=== PATIENT | female | born 1975 | race Caucasian/White ===

== ENCOUNTER → 2017-10-09 | Outpatient (CLI) | payer OTHER | LOC: FIMAGING 08:06 | PROVIDERS: ATTEND Obstetrics & Gynecology | DX: O09.522 Supervision of elderly multigravida, second trimester (principal); O44.02 Complete placenta previa NOS or without hemorrhage, second trimester; O26.892 Other specified pregnancy related conditions, second trimester; M35.00 Sjogren syndrome, unspecified; Z3A.19 19 weeks gestation of pregnancy; Z88.0 Allergy status to penicillin ==

== ENCOUNTER → 2017-12-11 | Outpatient (CLI) | payer OTHER | LOC: FIMAGING 08:56 | PROVIDERS: ATTEND Obstetrics & Gynecology | DX: O44.03 Complete placenta previa NOS or without hemorrhage, third trimester (principal); O09.523 Supervision of elderly multigravida, third trimester; O26.893 Other specified pregnancy related conditions, third trimester; M32.9 Systemic lupus erythematosus, unspecified; M35.00 Sjogren syndrome, unspecified; Z3A.28 28 weeks gestation of pregnancy ==

== ENCOUNTER → 2018-01-08 | Outpatient (CLI) | payer OTHER | LOC: FIMAGING 13:26 | PROVIDERS: ATTEND Obstetrics & Gynecology | DX: O09.523 Supervision of elderly multigravida, third trimester (principal); O36.63X0 Maternal care for excessive fetal growth, third trimester, not applicable or unspecified; O44.03 Complete placenta previa NOS or without hemorrhage, third trimester; M32.9 Systemic lupus erythematosus, unspecified; M35.00 Sjogren syndrome, unspecified; O26.893 Other specified pregnancy related conditions, third trimester; Z3A.32 32 weeks gestation of pregnancy ==

== ENCOUNTER 2018-01-28 21:27 | Observation (INO) | payer OTHER ==
--- NOTE | 2018-01-28 22:24 | PDGENHP ---
History and Physical - Chief Complaint Painless vaginal bleeding, complete previa - History of Present Illness Rebecca is a 42 yo at 35w0d wks EGA who called today with small but ongoing vaginal bleeding and brown discharge. Really no change in cramping or ctc's - she's been having irregular BHCtx's for weeks now. No leaking, good movement. Bleeding has never really been heavy or bright red. This began this morning, no intercourse or change in physical activity yesterday that would've prompted anything. She does have known complete previa and has a scheduled PLTCS with Dr. Niño on 02/14/18. This is her first episode of bleeding thus far during the . Her labs are not available at the time of this H&P. Laboratory Tests 08/09/17 08/09/17 08/09/17 10:03 10:03 10:03 Hgb Hct Plt Count RPR NONREACTIVE C.trachomatis RNA (TMA) Hep Bs Antigen NEGATIVE HIV 1&2 Antibody NEGATIVE Rubella IgG Antibody 12.70 VZV IgG Antibody Positive VZV IgG,IgM Antibody Negative 08/22/17 12/13/17 Unknown 12:49 Hgb 11.7 L Hct 33.9 L Plt Count 171 RPR C.trachomatis RNA (TMA) NEGATIVE Hep Bs Antigen HIV 1&2 Antibody Rubella IgG Antibody VZV IgG Antibody VZV IgG,IgM Antibody History Information - Allergies/Home Medication List Allergies/Adverse Reactions: hydrocodone [From Vicodin] Allergy (Mild, Verified 01/28/18 22:14) Unknown Penicillins Allergy (Verified 01/28/18 22:14) Home Medications: Vit27&Calcium/Iron/FA [] 1 tab PO DAILY 02/09/16 [Last Taken ] Herbals/Supplements -Info Only 01/28/18 [Last Taken 01/28/18] Iron 01/28/18 [Last Taken 01/28/18] Turmeric/Herbal Complex No.278 01/28/18 [Last Taken 01/28/18] I have personally reviewed and updated: family history, medical history, social history, surgical history - Social History Smoking Status: Never smoked Alcohol Use: None Review of Systems Review of Systems: ROS: 10pt was reviewed & negative except for what was stated in HPI & below Physical Exam Physical Exam: Constitutional: no apparent distress, not in pain Gastrointestinal: soft, non-tender abdomen, No tenderness Skin: warm, normal color Musculoskeletal: full muscle strength Neurologic: AAOx3 Psychiatric: interacting appropriately, not anxious Lab Data & Imaging Review Imaging Review: FHR 140s, mod donovan, accels present, no decels Assessment & Plan Assessment: 42 yo G1 at 35 wks EGA - presents with painless bleeding and known complete placenta previa. - Admitted for observation. No bleeding on admission. - If bleeding returns will need IV, CBC, Type & Screen. - If reassuring tracing for the first 3 hrs then can Dc CEFM and allow her to sleep. - If bleeding or ctx's evolve - then will give BMZ. - Will discuss plan for observation/dc tomorrow. LISA
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
--- NOTE | 2018-01-30 09:20 | OBPROG ---
Labor Progress Note Assessment/Plan: Assessment: IUP at 35w2d complete previa with first episode bld on 01/28 - scant last pm Plan: will d/c home to cont limited activity at home. RTC monday01/30/18 09:13 Subjective/Intrapartum Course: Pt doing well. Did not have any spotting overnight. Had a few more contractions this morning, followed by brown/dark spotting. 01/29/18 11:16 01/30/18 09:14 Pt doing well. Whiteside she really slept well. GFM and no cramping this am. no bld this am. scant spotting - brownish last pm after mild cramps. Reports urinating fine and generally regular BMs. Disc limited activity and hydrating adequately. Disc f/u with office Monday and if any further persistent brownish or red bld. Objective: ultrasound done and DEIRDRE - 4 quad was 20cm, vtx - Contraction Pattern Assessment Current Contraction Pattern: Other (Specify) (none) - FHR Assessment Cowan FHR (bpm): 130 FHR Pattern Variability: Moderate FHR Category: 1 (reactive NSTs with accels) Oxytocin Orders Assessment - Pre-Induction/Augmentation Assessment Gestational Age: 35 week(s) and 0 day(s) ICD10 Worksheet Patient Problems: Problems Problem Status Onset Placenta previa antepartum in third trimester Acute
== END 2018-01-30 12:15 | disposition home or self-care (01) ==
LOC: FLD 21:27
PROVIDERS: ADMIT Obstetrics & Gynecology; ATTEND Obstetrics & Gynecology
DX: O44.13 Complete placenta previa with hemorrhage, third trimester (principal); Z3A.34 34 weeks gestation of pregnancy
CPT/HCPCS: 59025; 76815; G0378

== ENCOUNTER 2018-02-13 08:12 | Inpatient (IN) | payer OTHER ==
[2018-02-13] MEDS ORDERED: LR 1,000 ML IV SCH ×2 (09:30→12:30)
[2018-02-13] MEDS ORDERED: LR 500 ML IV ONE (12:12)
[2018-02-13] MEDS ORDERED: CLINDAMYCIN 900 MG/DEXTROSE 50 ML IV ONE (12:13)
[2018-02-13 12:38] LABS: PLATELET COUNT 148 10^3/uL (150-400)
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
[2018-02-13] MEDS ORDERED: CITRIC ACID/SODIUM CITRATE 30 ML UDCUP ONE (13:52)
[2018-02-13] MEDS ORDERED: OXYTOCIN 100 UNITS/10 ML VIAL ONE (14:01)
[2018-02-13] MEDS ORDERED: fentaNYL 100 MCG/2 ML INJ ONE (14:01)
[2018-02-13] MEDS ORDERED: morphINE PF 5 MG/10 ML INJ ONE (14:01)
[2018-02-13] MEDS ORDERED: PHENYLEPHRINE 10 MG/ML SDV ONE (14:02)
[2018-02-13] MEDS ORDERED: MEPERIDINE 25 MG/0.5 ML AMP IVP PRN (14:03)
[2018-02-13] MEDS ORDERED: PHENYLEPHRINE HCL 100 MCG/ML SYR IVP PRN (14:03)
[2018-02-13] MEDS ORDERED: fentaNYL 100 MCG/2 ML INJ IVP PRN (14:03)
[2018-02-13] MEDS ORDERED: NALOXONE HCL 0.4 MG/ML INJ IVP PRN ×2 (14:03)
[2018-02-13] MEDS ORDERED: ONDANSETRON 4 MG/2 ML VIAL IVP PRN ×2 (14:03)
[2018-02-13] MEDS ORDERED: AMMONIA AROMATIC 1 EACH AMP IH ONE (14:05)
[2018-02-13] MEDS ORDERED: MISOPROSTOL 200 MCG TAB ONE (14:07)
--- NOTE | 2018-02-13 14:08 | PREANESOB ---
Obstetric Pre-Anesthesia Info - General Info Proposed Procedure: C/s : 3 Para: 0 SHAMIKA: 03/04/18 Gestational Age: 37 week(s) and 2 day(s) - Labor Status Indications for Current Section: Placenta Previa Anesthesia Allergies/Adverse Reactions: Allergy/AdvReac Type Severity Reaction Status Date / Time hydrocodone [From Vicodin] Allergy Mild Unknown Verified 01/28/18 22:14 Penicillins Allergy Verified 01/28/18 22:14 Home Medications: Medication Instructions Recorded Vit27&Calcium/Iron/FA 1 tab PO DAILY 02/09/16 [] Herbals/Supplements -Info Only 01/28/18 Iron 01/28/18 Turmeric/Herbal Complex No.278 01/28/18 Visit Medications: Generic Name Dose Route Start Last Admin Trade Name Freq PRN Reason Stop Dose Admin Lactated Ringer's 1,000 mls @ 0 mls/hr 02/13/18 09:30 02/13/18 09:35 Lr IV 08/12/18 09:29 1,000 mls CONT JORDIN Administration As Directed Lactated Ringer's 1,000 mls @ 125 mls/hr 02/13/18 12:30 Lr IV 02/14/18 12:29 CONT JORDIN Discontinued Medications Generic Name Dose Route Start Last Admin Trade Name Freq PRN Reason Stop Dose Admin Ammonia (Aromatic Spirit) Confirm 02/13/18 14:05 Ammonia Aromatic Administered 02/13/18 14:06 Dose 1 each IH .STK-MED ONE Citric Acid/Sodium Citrate Confirm 02/13/18 13:52 Bicitra Administered 02/13/18 13:53 Dose 30 ml .ROUTE .STK-MED ONE Fentanyl Confirm 02/13/18 14:01 Sublimaze Administered 02/13/18 14:02 Dose 100 mcg .ROUTE .STK-MED ONE Clindamycin Phosphate/Dextrose 50 mls @ 100 mls/hr 02/13/18 12:13 02/13/18 13 :58 Cleocin 900 Mg (Premix) IV 02/13/18 12:42 50 mls ONCALL ONE Administration Protocol Lactated Ringer's 500 mls @ 0 mls/hr 02/13/18 12:12 Lr IV 02/13/18 12:13 ONCE ONE As Directed Morphine Sulfate Confirm 02/13/18 14:01 Morphine Pf 5 Mg/10 Ml Administered 02/13/18 14:02 Dose 5 mg .ROUTE .STK-MED ONE Oxytocin Confirm 02/13/18 14:01 Pitocin Administered 02/13/18 14:02 Dose 100 units .ROUTE .STK-MED ONE Phenylephrine HCl Confirm 02/13/18 14:02 Neosynephrine Administered 02/13/18 14:03 Dose 10 mg .ROUTE .STK-MED ONE - Anesthesia History Response to Local Anesthetics: Normal Anesthesia & Operative History: No Prior Problems Family Anesthesia History: Negative - Vital Signs Latest Vital Signs (Nursing): Temp Pulse Resp BP Pulse Ox 37.0 C 60 20 106/77 02/13/18 12:41 02/13/18 12:41 02/13/18 12:41 02/13/18 12:41 Height/Weight (Nursing): Height 170.18 cm Weight 77.111 kg - Focused Exam Neck exam: FROM Mallampati Score: Class 3 Pulmonary: no respiratory distress, no rales or rhonchi, clear to auscultation Cardiovascular: regular rate and rhythym, no murmur, rub, or gallop Labs: 02/13/18 09:30 Patient ABO/Rh AB POSITIVE 02/13/18 09:30
[2018-02-13] MEDS ORDERED: MAGNESIUM HYDROXIDE 30 ML UDCUP PO PRN (15:42)
[2018-02-13] MEDS ORDERED: LACTULOSE 20 GM/30 ML UDCUP PO PRN (15:42)
[2018-02-13] MEDS ORDERED: POLYETHYLENE GLYCOL 3350 17 GM PKT PO PRN (15:42)
[2018-02-13] MEDS ORDERED: SIMETHICONE 80 MG TAB CHEW PO PRN (15:42)
[2018-02-13] MEDS ORDERED: BISACODYL 10 MG SUPP PR PRN (15:42)
--- NOTE | 2018-02-13 15:44 | POSTANESTH ---
Post Anesthetic Evaluation Cardiovascular Status: Normal, Stable, Similar to Pre-Op Cond Respiratory Status: Normal, Stable, Similar to Pre-op Cond. Level of Consciousness/Mental Status: Can Participate in Eval, Alert and Oriented Pain Control: Adequate, Prn Tx Ordered Nausea/Vomiting Control: Adequate, Prn Tx Ordered Complications Possibly Related to Anesthesia: None Noted
--- NOTE | 2018-02-13 15:49 | OBDEL ---
Info Type: Primary Presentation at Delivery: Vertex ([facility]) L&D Analgesia/Anesthesia Type: General GBS+: No Intrapartum Medications: Generic Name Dose Route Start Last Admin Trade Name Freq PRN Reason Stop Dose Admin Lactated Ringer's 1,000 mls @ 0 mls/hr 02/13/18 09:30 02/13/18 09:35 Lr IV 08/12/18 09:29 1,000 mls CONT JORDIN Administration As Directed Discontinued Medications Generic Name Dose Route Start Last Admin Trade Name Freq PRN Reason Stop Dose Admin Clindamycin Phosphate/Dextrose 50 mls @ 100 mls/hr 02/13/18 12:13 02/13/18 13 :58 Cleocin 900 Mg (Premix) IV 02/13/18 12:42 50 mls ONCALL ONE Administration Protocol - Infant Care Provider Senior Financial Reporting Analyst/HAT CLEANER: Demi Wilson - Hospital Course Intrapartum: 02/13/18 15:47 Known placenta previa at 37 2/7 weeks with bleeding Indications for Delivery: Placenta Previa Vaginal Delivery - Labor and Delivery Cord Gases: Cord Gases Cord Blood PCO2 46.6 mmHg (37-60) 02/13/18 14:44 Cord Base Excess TNP 02/13/18 14:44 Cord ABG pH 7.34 (7.10-7.37) 02/13/18 14:44 Cord VBG pH TNP 02/13/18 14:44 Operative Report - Delivery Pre-op Diagnoses: IUP @ 37 2/7 wks with known complete placenta previa with bleeding Post-op Diagnoses: IUP @ 37 2/7 wks with known complete placenta previa with bleeding History of Prior Section: No Number of Prior Sections: 0 Nulliparous Prior to Delivery: No Indications for Current Section: Placenta Previa Procedure: Unscheduled, Low Transverse Surgeon: Olga Niño Precision Inspector: Kirstin Cuevas Anesthesiologist: Damian Christopher Complications: Post Hemorrhage (Secondary to uterine atony-Pitocin given , 30 units in each bag of fluids x2 as well as 800 mcg Cytotec ID given. Uterine massage performed. Multiple [id number]-[id number] sutures on hysterotomy done and finally hemostasis was achieved. Loan placed for further hemostasis. At the end of the case, a large clot was expressed after fundal massage-an additional 250 cc.) Findings: A viable male infant born at 1444 in [place] presentation with 9 and 9 Apgars. Some difficulty delivering the head secondary to placenta near incision, but head was finally delivered with vacuum assistance. Cord clamped x 2 and then cut, to waiting HAT CLEANER. Cord gases obtained. Minimal blood obtained for cord bloods. Placenta delivered spontaneously intact with 3-vc. Grossly normal appearing uterus, tubes and ovaries. PPH noted secondary to uterine atony. Pitocin-30 units in each bag of fluids given x 2 as well as Cytotec 800 mcg ID. Uterine massage was performed and multiple zbhkow-[id number]-uzifm sutures were placed and hemostasis was finally achieved. Loan was placed on hysterotomy for further hemostasis. Pt tolerated well. Specimen(s)/Path: Other (Specify) (none) IV Fluid (ml): 2,400 EBL: 1500 cc UO: 50 cc clear urine Cord Gases: Cord Gases Cord Blood PCO2 46.6 mmHg (37-60) 02/13/18 14:44 Cord Base Excess TNP 02/13/18 14:44 Cord ABG pH 7.34 (7.10-7.37) 02/13/18 14:44 Cord VBG pH TNP 02/13/18 14:44 Data SHAMIKA: 03/04/18 Gestational Age: 37 week(s) and 2 day(s) [place] Delivery Date: 02/13/18 Delivery Time: 14:44 Sex of Infant: Male Score (1 Min): 9 Score (5 Min): 9 ICD10 Worksheet Patient Problems: Problems Problem Status Onset PPH ( hemorrhage) Acute Status post primary low transverse section Acute Placenta previa antepartum in third trimester Acute - ICD10 Problem Qualifiers (1) Status post primary low transverse section (2) PPH ( hemorrhage)
[2018-02-13] MEDS ORDERED: MEASLES,MUMPS&RUBELLA VACC/PF 0.5 ML VIAL SC ONE (17:42)
[2018-02-13] MEDS: KETOROLAC 30 MG/1 ML SDV IVP SCH (18:02)
--- NOTE | 2018-02-13 23:49 | GOP ---
DATE OF OPERATION: 02/13/2018 SURGEON: Ogla Niño DO CRUSHER SCREEN REPAIRER: JAMEY Moffett. ANESTHESIA: Spinal. ANESTHESIOLOGIST: Damian Christopher MD. PREOPERATIVE DIAGNOSIS: 1. Intrauterine at 37 and 2/7 weeks. 2. Known complete placenta previa. 3. Vaginal bleeding. POSTOPERATIVE DIAGNOSIS: 1. Intrauterine at 37 and 2/7 weeks. 2. Known complete placenta previa. 3. Vaginal bleeding. PROCEDURE PERFORMED: Primary low transverse section. FINDINGS: Viable male born at 1444 in [place] presentation with 9 and 9 Apgars. Some difficulty delivering the head secondary to placenta at incision. Head was finally delivered with vacuum assistance. Cord clamped x2 and cut and to awaiting OPERATING ROOM SPECIALIST. Cord gases obtained. There was minimal blood obtained for cord bloods. Placenta then delivered spontaneously intact with 3- vessel cord. Grossly normal-appearing uterus, tubes, and ovaries. hemorrhage noted secondary to uterine atony. Pitocin x2 bags given as well as Cytotec 800 mcg given p.r. Uterine massage was performed and multiple figure-of -eight sutures was placed. Hemostasis was finally achieved. ESTIMATED BLOOD LOSS: 1500 cc. INDICATIONS: Patient is a 42-year-old 3, para 0-0-2-0, at 37-2/7 weeks ' with a known complete placenta previa who comes in today with vaginal bleeding this morning and some mild cramping. Patient was scheduled for a primary in the morning. We discussed proceeding to the operating room for primary now while patient is stable. Patient agrees with the plan. We discussed risks, benefits, and alternatives of the procedure including, but not limited to, bleeding, infection, and damage to surrounding organs. Patient understands all risks of the procedure, and wants to proceed. Patient was properly consented. DESCRIPTION OF PROCEDURE: Patient was taken to the operating room, where spinal anesthesia was administered without difficulty. Patient was prepped and draped in usual sterile fashion in dorsal supine position with leftward tilt. A Pfannenstiel skin incision was then made with a scalpel, carried through the underlying layer of fascia using the Bovie. The fascia was incised in the midline and extended laterally using Lara scissors. Gerson clamps were then used to elevate the superior aspect of fascial incision which was elevated, and underlying rectus muscles were dissected off sharply using the Lara scissors. Attention was then turned to the inferior aspect of the fascial incision which in a similar fashion was grasped with Gerson clamps, elevated, and underlying rectus muscles dissected off again using the Lara scissors. Rectus muscles were then dissected in the midline. Peritoneum was identified and entered bluntly. This incision was extended superiorly and inferiorly with good visualization of the bladder. Bladder blade was then inserted. Vesicouterine peritoneum was identified, entered sharply using Metzenbaum scissors. Incision was then extended laterally, and the bladder flap was created digitally. Bladder blade was reinserted. The lower uterine segment was identified and then incised in transverse fashion using scalpel and extended superiorly and inferiorly with manual traction. Lots of clear fluid was noted upon entry to amniotic sac. There was also placenta noted right at the incision. After the placenta was moved out of the way, the head was noted and grasped. There was difficulty delivering the head, so a Kiwi vacuum was applied and the head was then delivered. The nose and mouth were bulb suctioned. The cord was clamped immediately x2 and cut. was handed to the awaiting nurse practitioner. Placenta was delivered spontaneously intact with a 3-vessel cord. Cord gases were obtained prior to this. There was minimal blood for cord bloods. Uterus was then exteriorized, and cleared of all clots and debris. Uterine incision repaired in two layers using 0 Vicryl suture. The 1st layer was a running locked suture of 0 Vicryl. Hemostasis was noted. A 2nd layer was an imbricating layer using 0 Vicryl suture. There was noted to be bleeding from multiple areas and uterine atony was noted. At this time Pitocin was running, 30 units in 1 bag and it was recommended giving a 2nd bag at this time. Also, 800 mcg of Cytotec was placed per rectum by the nurse. These bleeding sites were sutured with [id number] stitches of 0 Vicryl. Uterine massage was performed, and hemostasis was finally achieved. The uterus was then returned to the abdomen. Gutters were then cleared of all clots and debris. Incision was reexamined, and was noted to be slightly oozing, so at this point Loan was placed and hemostasis was achieved. The rectus muscles were reapproximated in the midline using 3-0 Vicryl. Fascia was then closed with 0 Vicryl suture. Hemostasis noted. The skin was then closed with 0 Vicryl with a Saud needle, and Steri-Strips were applied. Sponge, lap, instrument, and needle counts were correct x2. Patient tolerated the procedure well. Patient was stable at the completion of the procedure and was transferred to recovery room in stable condition. INTRAVENOUS FLUIDS: 2400 cc of LR. URINE OUTPUT: 50 cc of clear urine at the end of the procedure. COMPLICATIONS: None. /[id number]/MODL MTDD
[2018-02-13] MEDS: ACETAMINOPHEN 325 MG TAB PO SCH (23:51)
[2018-02-14] MEDS: ACETAMINOPHEN 325 MG TAB PO SCH ×4 (00:01→18:30)
[2018-02-14] MEDS: KETOROLAC 30 MG/1 ML SDV IVP SCH ×3 (00:01→19:47)
[2018-02-14] MEDS: SENNOSIDES/DOCUSATE SODIUM TAB PO SCH ×2 (06:29→11:18)
[2018-02-14] MEDS: DOCUSATE SODIUM 100 MG CAP PO PRN (08:49)
[2018-02-14] MEDS: oxyCODONE IR 5 MG TAB PO PRN ×3 (08:49→17:08)
[2018-02-14] MEDS ORDERED: AMMONIA AROMATIC 1 EACH AMP IH ONE (10:07)
--- NOTE | 2018-02-14 10:07 | OBPP ---
Progress Note Assessment/Plan: Assessment: pod# 1 s/p PLTCS for placenta previa s/p pp hemorrhagia -- bleeding stable anemia - asymptomatic - will start iron breast feeding and pumping hx lupus and sjogrens hx "pp depression" after last SAB - photoresist contact printer making her tea to prevent pp depression 02/14/18 10:02 Subjective/ Course: 02/14/18 10:05 patient is doing well. pain is controlled. tolerating diet. passing gas. no bowel movement. working on breast feeding. denies headache and changes in vision. normal lochia. johnson still in. mood good. per patient her photoresist contact printer is making her a tea to prevent post depression. advised we can not ensure the safety of the tea. per patient the photoresist contact printer would never give her something not safe. had near syncopal episode getting up for the first time. doing better now. Objective: 02/14/18 04:50 Patient ABO/Rh AB POSITIVE 02/13/18 09:30 Temp Pulse Resp BP Pulse Ox 36.4 C 74 16 93/53 L 92 02/14/18 08:00 02/14/18 08:00 02/14/18 08:00 02/14/18 08:00 02/14/18 08:00 Physical Exam - Physical Exam Neck: non-tender, full range of motion, supple Respiratory: chest non-tender, normal breath sounds Cardiac/Chest: normal peripheral pulses, regular rate, rhythm Abdomen: normal bowel sounds, non-tender, other (fundus firm and non tender) Extremities: normal range of motion, non-tender, normal inspection, normal capillary refill Back: Normal inspection Skin: normal color, warm/dry, other (incision covered) Neuro/Psych: no motor/sensory deficits, alert, normal mood/affect, oriented x 3
--- NOTE | 2018-02-14 10:21 | POSTANESTH ---
Post Anesthetic Evaluation Cardiovascular Status: Normal, Stable Respiratory Status: Normal, Stable Level of Consciousness/Mental Status: Can Participate in Eval, Alert and Oriented Pain Control: Adequate, Prn Tx Ordered Nausea/Vomiting Control: Adequate, Prn Tx Ordered Complications Possibly Related to Anesthesia: None Noted Notes: reports excellent analgesia until 0300. denies pruritis, nausea, vomiting, headache, motor weakness.
[2018-02-14] MEDS: FERROUS SULFATE 140 MG TAB.ER PO SCH (11:18)
[2018-02-14] MEDS ORDERED: KETOROLAC 30 MG/1 ML SDV IVP ONE (12:40)
[2018-02-14] MEDS: IBUPROFEN 600 MG TAB PO SCH (18:30)
[2018-02-15] MEDS: DOCUSATE SODIUM 100 MG CAP PO PRN (00:22)
[2018-02-15] MEDS: SENNOSIDES/DOCUSATE SODIUM TAB PO SCH ×3 (00:22→20:09)
[2018-02-15] MEDS: IBUPROFEN 600 MG TAB PO SCH ×4 (00:22→18:43)
[2018-02-15] MEDS: ACETAMINOPHEN 325 MG TAB PO SCH ×4 (00:22→18:43)
[2018-02-15] MEDS: oxyCODONE IR 5 MG TAB PO PRN ×3 (06:34→16:22)
--- NOTE | 2018-02-15 09:03 | OBPP ---
Progress Note Assessment/Plan: Assessment: 42 yo POD#2 s/p primary C/S for previa. Doing well. Plan: Continue routine post op cares. Ivette Mohan MD, FACOG. [facility] 02/15/18 13:39 Subjective/ Course: 02/14/18 10:05 patient is doing well. pain is controlled. tolerating diet. passing gas. no bowel movement. working on breast feeding. denies headache and changes in vision. normal lochia. johnson still in. mood good. per patient her discharge rn is making her a tea to prevent post depression. advised we can not ensure the safety of the tea. per patient the discharge rn would never give her something not safe. had near syncopal episode getting up for the first time. doing better now. 02/15/18 13:44 Doing well. Pain well controlled with po meds. Ambulating, emanuel reg diet, voiding, + flatus, all without difficulty. going well. Normal lochia. Objective: 02/14/18 04:50 Patient ABO/Rh AB POSITIVE 02/13/18 09:30 Temp Pulse Resp BP Pulse Ox 36.3 C 69 16 96/56 L 94 02/15/18 00:20 02/15/18 00:20 02/15/18 00:20 02/15/18 00:20 02/15/18 00:20 gen - pleasant, NAD CV - RRR chest - CTAB abd - + NABS, + BS, fundus firm at u-2, inc - c/d/i with steristrips. ext - calves NT, no edema Uterine Position/Fundal Height: Umbilicus -2 Uterine Tone: Firm
[2018-02-15] MEDS: FERROUS SULFATE 140 MG TAB.ER PO SCH (10:48)
[2018-02-15] MEDS ORDERED: MEASLES,MUMPS&RUBELLA VACC/PF 0.5 ML VIAL SC ONE (14:30)
[2018-02-16] MEDS: IBUPROFEN 600 MG TAB PO SCH ×3 (00:35→12:31)
[2018-02-16] MEDS: ACETAMINOPHEN 325 MG TAB PO SCH ×3 (00:35→12:29)
[2018-02-16] MEDS: oxyCODONE IR 5 MG TAB PO PRN ×2 (06:46→11:16)
[2018-02-16] MEDS: SENNOSIDES/DOCUSATE SODIUM TAB PO SCH (08:46)
[2018-02-16] MEDS: FERROUS SULFATE 140 MG TAB.ER PO SCH (08:47)
[2018-02-16 09:47] VITALS: BP 114/67
--- NOTE | 2018-02-16 10:18 | OBPP ---
Progress Note Assessment/Plan: Assessment: POD 3 s/p primary C/S for placenta previa anemia on iron Schogren's with SSA antibodies Rubella lowImm Plan: Desires D/C home, cont iron daily and OxyIR prn 02/16/18 10:13 Subjective/ Course: 02/14/18 10:05 patient is doing well. pain is controlled. tolerating diet. passing gas. no bowel movement. working on breast feeding. denies headache and changes in vision. normal lochia. johnson still in. mood good. per patient her copy supervisor is making her a tea to prevent post depression. advised we can not ensure the safety of the tea. per patient the copy supervisor would never give her something not safe. had near syncopal episode getting up for the first time. doing better now. 02/15/18 13:44 Doing well. Pain well controlled with po meds. Ambulating, emanuel reg diet, voiding, + flatus, all without difficulty. going well. Normal lochia. 02/16/18 10:15 Pt doing well. Managing pain with regular ibu/tyl and has taken less Oxy last noc and plans to taper down today to 1 pill at a time. Baby is latching well. bld is less and urinating fine. no BM yet. amb well and no nausea. Wanting d/ c 02/16/18 10:18 Objective: 02/14/18 04:50 Patient ABO/Rh AB POSITIVE 02/13/18 09:30 Temp Pulse Resp BP Pulse Ox 36.6 C 70 20 114/67 94 02/16/18 08:30 02/16/18 08:30 02/16/18 08:30 02/16/18 08:30 02/16/18 08:30 Uterine Position/Fundal Height: Umbilicus -2 Uterine Tone: Firm Physical Exam - Physical Exam Abdomen: non-tender (approp post op tenderness), soft, incision (CDI - steristrips in place) Extremities: non-tender, pedal edema (mild) Skin: normal color, warm/dry Neuro/Psych: alert, normal mood/affect
--- NOTE | 2018-02-16 10:20 | OBGCSDC ---
General Delivery Information - General Info : 3 Para: 1 Abortions: 2 Type: Primary L&D Analgesia/Anesthesia Type: Epidural Admission Date: 02/13/18 Labs: Patient ABO/Rh AB POSITIVE 02/13/18 09:30 Hct 29.8 % (38.0-47.0) L 02/14/18 04:50 - Hospital Course Intrapartum: 02/13/18 15:47 Known placenta previa at 37 2/7 weeks with bleeding : 02/14/18 10:05 patient is doing well. pain is controlled. tolerating diet. passing gas. no bowel movement. working on breast feeding. denies headache and changes in vision. normal lochia. johnson still in. mood good. per patient her bronze plater is making her a tea to prevent post depression. advised we can not ensure the safety of the tea. per patient the bronze plater would never give her something not safe. had near syncopal episode getting up for the first time. doing better now. 02/15/18 13:44 Doing well. Pain well controlled with po meds. Ambulating, emanuel reg diet, voiding, + flatus, all without difficulty. going well. Normal lochia. 02/16/18 10:15 Pt doing well. Managing pain with regular ibu/tyl and has taken less Oxy last noc and plans to taper down today to 1 pill at a time. Baby is latching well. bld is less and urinating fine. no BM yet. amb well and no nausea. Wanting d/ c 02/16/18 10:18 - Delivery Providers Surgeon: Olga Niño Laser Engraver: Kirstin Cuevas Anesthesiologist: Damian Christopher - Delivery Number of Prior Sections: 0 Indications for Current Section: Placenta Previa Surgical Procedures: Unscheduled, Low Transverse Intra-op Complications: Post Hemorrhage (Secondary to uterine atony- Pitocin given, 30 units in each bag of fluids x2 as well as 800 mcg Cytotec NH given. Uterine massage performed. Multiple [id number] sutures on hysterotomy done and finally hemostasis was achieved. Loan placed for further hemostasis. At the end of the case, a large clot was expressed after fundal massage-an additional 250 cc.) EBL: 1500 cc UO: 50 cc clear urine Data SHAMIKA: 03[birth year] Gestational Age: 37 week(s) and 5 day(s) [place] Delivery Date: 02/13/18 Delivery Time: 14:44 Sex of Infant: Male Weight (gm): 3246 g Discharge Information - Discharge Information Prescriptions: oxyCODONE IR [Oxycodone Ir (*)] 5 - 10 mg PO Q4HRS PRN #24 tab PRN Reason: Pain, Severe Able To Take Po Condition: Good Instruction/Follow Up: See Instruction Sheet, Two Weeks (with Revoal), Four Weeks (with therapist), Six Weeks (with Revoal)
== END 2018-02-16 16:00 | disposition home or self-care (01) | DRG 806 ==
LOC: FLD 08:12 → OBSVTOIN 16:40 → FLD 17:00 → FOB 17:45
PROVIDERS: ADMIT Obstetrics & Gynecology; ATTEND Obstetrics & Gynecology
PROC: 10D07Z6 Extraction of Products of Conception, Vacuum, Via Natural or Artificial Opening (ICD-10-PCS; principal; 2018-02-13)
DX: O44.13 Complete placenta previa with hemorrhage, third trimester (principal); Z37.0 Single live birth; O72.1 Other immediate postpartum hemorrhage; Z3A.37 37 weeks gestation of pregnancy; O99.02 Anemia complicating childbirth; D64.9 Anemia, unspecified; O26.893 Other specified pregnancy related conditions, third trimester; M32.9 Systemic lupus erythematosus, unspecified; M35.00 Sjogren syndrome, unspecified
CPT/HCPCS: J1885; J2274; J2370; J2590; J3010

== ENCOUNTER → 2018-05-08 | Outpatient (CLI) | payer OTHER | LOC: BMCIMAGING 14:56 ==